=== PATIENT | male | born 1950 | race Native Hawaiian/Other Pacific Islander ===

== ENCOUNTER 2018-12-27 13:01 | Outpatient (CLI) | payer SELFPAY | END 2018-12-27 13:02 | disposition home or self-care (01) | LOC: C.RADH 13:01 ==

== ENCOUNTER 2019-01-03 10:25 | Outpatient (CLI) | payer OTHER, SELFPAY | END 2019-01-03 10:26 | disposition home or self-care (01) | LOC: C.DEXAIC 10:25 | DX: Z13.820 Encounter for screening for osteoporosis (principal); R73.9 Hyperglycemia, unspecified; R94.6 Abnormal results of thyroid function studies ==

== ENCOUNTER 2019-01-08 11:44 | Outpatient (CLI) | payer OTHER | END 2019-01-08 11:45 | disposition home or self-care (01) | LOC: C.PAT 11:44 | DX: R97.20 Elevated prostate specific antigen [PSA] (principal) ==

== ENCOUNTER 2019-01-14 11:20 | Day surgery (SDC) | payer OTHER ==
[2019-01-14 12:09] VITALS: BP 147/80; PULSE 77; RESP 20; TEMP 98.5; O2SAT 100
[2019-01-14 12:11] VITALS: BMI 27.4
== END 2019-01-14 16:00 | disposition home or self-care (01) ==
LOC: C.SDS 11:20
PROVIDERS: ATTEND Urology
DX: R97.20 Elevated prostate specific antigen [PSA] (principal)